=== PATIENT | male | born 2000 | race Caucasian/White ===

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

== ENCOUNTER 2023-04-21 00:25 | Emergency (ER) | payer OTHER ==
[~2023-04-21] VITALS: Ht 172.7 cm; Wt 90.7 kg
[2023-04-21 00:59] VITALS: BP 143/78; PULSE 82; RESP 14; TEMP 98.1; O2SAT 100
[2023-04-21] MEDS ORDERED: IBUP-2213 PO (03:19)
[2023-04-21] MEDS ORDERED: CIPR500T4 PO (03:19)
[2023-04-21] MEDS ORDERED: LOPE-289 PO (03:19)
[2023-04-21 03:24] VITALS: PULSE 82; RESP 14; TEMP 98.1; O2SAT 100
== END 2023-04-21 03:25 | disposition home or self-care (01) ==
LOC: MED 00:25
DX: R10.12 Left upper quadrant pain (principal); R19.7 Diarrhea, unspecified; R50.9 Fever, unspecified; Z79.899 Other long term (current) drug therapy
CPT/HCPCS: 99283